=== PATIENT | male | born 1960 | race Caucasian/White ===

== ENCOUNTER 2016-04-05 10:50 | Outpatient (CLI) | payer MEDICAID | END 2016-04-05 10:51 | disposition home or self-care (01) | DX: S83.242A Other tear of medial meniscus, current injury, left knee, initial encounter (principal); M23.022 Cystic meniscus, posterior horn of medial meniscus, left knee; M17.12 Unilateral primary osteoarthritis, left knee ==

== ENCOUNTER 2016-05-02 17:17 | Outpatient (CLI) | payer MEDICAID | END 2016-05-02 17:18 | disposition critical access hospital (66) | DX: R00.2 Palpitations (principal) | CPT/HCPCS: A0425; A0429 ==

== ENCOUNTER 2016-05-02 17:31 | Emergency (ER) | payer MEDICAID | END 2016-05-02 19:58 | disposition home or self-care (01) | DX: R00.2 Palpitations (principal); F99 Mental disorder, not otherwise specified; F31.9 Bipolar disorder, unspecified; R03.0 Elevated blood-pressure reading, without diagnosis of hypertension ==

== ENCOUNTER 2019-06-29 08:00 | Outpatient (CLI) | payer MEDICAID, MEDICARE ==
[2019-06-29 18:51] LABS: BILIRUBIN,URINE NEGATIVE (NEGATIVE); GLUCOSE, URINE (UA) NEGATIVE (NEGATIVE); KETONES,URINE (UA) NEGATIVE (NEGATIVE); LEUKOCYTE ESTERASE, URINE NEGATIVE (NEGATIVE); NITRITE,URINE NEGATIVE (NEGATIVE); OCCULT BLOOD,URINE NEGATIVE (NEGATIVE); PROTEIN,URINE NEGATIVE (NEGATIVE); UROBILINOGEN,URINE 0.2 (NORMAL) E.U./dL (NORMAL)
[2019-06-29 18:56] LABS: CLARITY,URINE CLEAR (CLEAR)
== END 2019-06-29 23:59 | disposition home or self-care (01) ==
LOC: LAB.R 08:00
PROVIDERS: ATTEND Physician Assistant Medical
DX: R35.0 Frequency of micturition (principal)
CPT/HCPCS: 81001; 81003; 87086

== ENCOUNTER 2020-03-24 08:00 | Outpatient (CLI) | payer MEDICARE ==
[2020-03-24 17:56] LABS: BILIRUBIN,URINE NEGATIVE (NEGATIVE); GLUCOSE, URINE (UA) NEGATIVE (NEGATIVE); KETONES,URINE (UA) NEGATIVE (NEGATIVE); LEUKOCYTE ESTERASE, URINE NEGATIVE (NEGATIVE); NITRITE,URINE NEGATIVE (NEGATIVE); OCCULT BLOOD,URINE NEGATIVE (NEGATIVE); PROTEIN,URINE NEGATIVE (NEGATIVE); UROBILINOGEN,URINE 0.2 (NORMAL) E.U./dL (NORMAL)
[2020-03-24 17:58] LABS: CLARITY,URINE CLOUDY (CLEAR)
[2020-03-24 19:14] LABS: BACTERIA,URINE None Seen /HPF (None Seen); SQUAMOUS EPITHELIAL CELL,UR NONE SEEN (<= Few)
[2020-03-24 19:17] LABS: RBC,URINE TNTC /HPF (0-5)
== END 2020-03-24 23:59 | disposition home or self-care (01) ==
LOC: LAB.WCP 08:00
DX: C61 Malignant neoplasm of prostate (principal)
CPT/HCPCS: 81001; 87086

== ENCOUNTER 2020-08-23 19:52 | Outpatient (CLI) | payer MEDICARE | END 2020-08-23 19:53 | disposition EMS.NT | LOC: EMS 19:52 | DX: Z03.89 Encounter for observation for other suspected diseases and conditions ruled out (principal) ==

== ENCOUNTER 2020-08-26 17:14 | Emergency (ER) | payer MEDICARE ==
--- NOTE | 2020-08-26 17:28 | ED Physician Documentation ---
History of Present Illness - Stated complaint Stated Complaint: FIT - Chief complaint Chief Complaint: General - History obtained from History obtained from: Patient, Police - Additonal information Additional information: 60-year-old gentleman with bipolar disorder, also prostate cancer and potentially leukemia, sounds like he is in remission on hormonal therapy. Gets treatment at the [facility]. Brought in by police for mental health evaluation versus fit for confinement. He is clearly manic but says that he is not bipolar. Does admit that he is not on any of his bipolar meds which she was on in the past. No SI or HI. Review of Systems Ten Systems: 10 systems reviewed and negative Constitutional: reports: Reviewed and negative Eyes: reports: Reviewed and negative Ears: reports: Reviewed and negative PD PAST MEDICAL HISTORY - Past Medical History Cardiovascular: Hypertension, Arrhythmia GI: GERD Psych: Bipolar disorder, Post traumatic stress disorder - Past Surgical History Past Surgical History: No - Present Medications Home Medications: Ambulatory Orders Medication Instructions Recorded Confirmed Amlodipine Besylate [Norvasc] 1 tab PO DAILY 08/26/20 08/26/20 Losartan Potassium [Cozaar] 1 tab PO DAILY 08/26/20 08/26/20 Prednisone [Judith] 1 tab PO BID 08/26/20 08/26/20 Venlafaxine [Effexor] 1 tab PO DAILY 08/26/20 08/26/20 hydroCHLOROthiazide [Hydrodiuril] 1 tab PO DAILY 08/26/20 08/26/20 - Allergies Allergies/Adverse Reactions: Allergies Allergy/AdvReac Type Severity Reaction Status Date / Time atenolol [From Tenormin] AdvReac Unknown Hallucinati Verified 08/26/20 17:24 ons digoxin AdvReac Unknown Unknown Verified 08/26/20 17:24 - Social History Does the pt smoke?: No Smoking Status: Never smoker Does the pt drink ETOH?: No Does the pt have substance abuse?: Yes - Immunizations Immunizations are current?: Yes - POLST Patient has POLST: No PD ED PE NORMAL - Vitals Vital signs reviewed: Yes - General General: Other (Pressured speech with tangential thought processes) - HEENT HEENT: PERRL, EOMI - Neck Neck: Supple, no meningeal sign, No bony TTP - Cardiac Cardiac: RRR, No murmur - Respiratory Respiratory: No respiratory distress, Clear bilaterally - Abdomen Abdomen: Normal bowel sounds, Soft, Non tender - Back Back: No CVA TTP, No spinal TTP - Derm Derm: Normal color, Warm and dry - Extremities Extremities: No edema, No calf tenderness / cord - Neuro Neuro: Alert and oriented X 3, Normal speech - Psych Psych: Other (Pressured and manic) Results - Vitals Vitals: Vital Signs - 24 hr 08/26/20 08/26/20 17:16 23:00 Temperature 36.6 C 36.5 C Heart Rate 111 H 90 Respiratory 16 16 Rate Blood Pressure 190/82 H 140/80 H O2 Saturation 98 100 Oxygen O2 Source Room air - EKG (time done) 1918 Rate: Rate (enter#) (79) Rhythm: NSR Gulliver: Normal Intervals: Normal ID QRS: Normal Ischemia: Normal ST segments - Labs Labs: Laboratory Tests 08/26/20 08/26/20 08/26/20 17:30 17:30 17:30 WBC 7.9 RBC 4.31 L Hgb 13.4 L Hct 40.0 L MCV 92.8 MCH 31.1 H MCHC 33.5 RDW 12.5 Plt Count 258 MPV 8.7 Neut # (Auto) 4.2 Lymph # (Auto) 2.9 Bradley # (Auto) 0.6 Eos # (Auto) 0.3 Baso # (Auto) 0.0 Absolute Nucleated RBC 0.00 Nucleated RBC % 0.0 Sodium 138 Potassium 3.6 Chloride 102 Carbon Dioxide 24 Anion Gap 12.0 BUN 15 Creatinine 0.8 Estimated GFR (MDRD) 98 Glucose 181 H Calcium 9.7 Total Bilirubin 0.5 AST 30 ALT 27 Alkaline Phosphatase 95 Total Protein 7.5 Albumin 4.1 Globulin 3.4 Albumin/Globulin Ratio 1.2 Lipase 39 TSH 1.02 Urine Color Urine Clarity Urine pH Ur Specific [place] Urine Protein Urine Glucose (UA) Urine Ketones Urine Occult Blood Urine Nitrite Urine Bilirubin Urine Urobilinogen Ur Leukocyte Esterase Ur Microscopic Review Urine Culture Comments Nasal Adenovirus (PCR) Nasal B. parapertussis DNA (PCR) Nasal Coronavir 229E PCR Nasal Coronavir HKU1 PCR Nasal Coronavir NL63 PCR Nasal Coronavir OC43 PCR Nasal Enterovir/Rhinovir PCR Nasal Influenza B PCR Nasal Influenza A PCR Nasal Parainfluen 1 PCR Nasal Parainfluen 2 PCR Nasal Parainfluen 3 PCR Nasal Parainfluen 4 PCR Nasal RSV (PCR) Nasal B.pertussis DNA PCR Nasal C.pneumoniae (PCR) Yvon Human Metapneumo PCR Nasal M.pneumoniae (PCR) Nasal SARS-CoV-2 (PCR) Salicylates < 6.0 Urine Opiates Screen Ur Oxycodone Screen Urine Methadone Screen Ur Propoxyphene Screen Acetaminophen < 10 L Ur Barbiturates Screen Ur Tricyclics Screen Ur Phencyclidine Scrn Ur Amphetamine Screen U Methamphetamines Scrn U Benzodiazepines Scrn Urine Cocaine Screen U Cannabinoids Screen Ethyl Alcohol < 5.0 08/26/20 08/26/20 17:37 18:05 WBC RBC Hgb Hct MCV MCH MCHC RDW Plt Count MPV Neut # (Auto) Lymph # (Auto) Bradley # (Auto) Eos # (Auto) Baso # (Auto) Absolute Nucleated RBC Nucleated RBC % Sodium Potassium Chloride Carbon Dioxide Anion Gap BUN Creatinine Estimated GFR (MDRD) Glucose Calcium Total Bilirubin AST ALT Alkaline Phosphatase Total Protein Albumin Globulin Albumin/Globulin Ratio Lipase TSH Urine Color YELLOW Urine Clarity CLEAR Urine pH 5.5 Ur Specific [place] 1.015 Urine Protein NEGATIVE Urine Glucose (UA) NEGATIVE Urine Ketones NEGATIVE Urine Occult Blood NEGATIVE Urine Nitrite NEGATIVE Urine Bilirubin NEGATIVE Urine Urobilinogen 0.2 (NORMAL) Ur Leukocyte Esterase NEGATIVE Ur Microscopic Review NOT INDICATED Urine Culture Comments NOT INDICATED Nasal Adenovirus (PCR) NOT DETECTED Nasal B. parapertussis DNA (PCR) NOT DETECTED Nasal Coronavir 229E PCR NOT DETECTED Nasal Coronavir HKU1 PCR NOT DETECTED Nasal Coronavir NL63 PCR NOT DETECTED Nasal Coronavir OC43 PCR NOT DETECTED Nasal Enterovir/Rhinovir PCR NOT DETECTED Nasal Influenza B PCR NOT DETECTED Nasal Influenza A PCR NOT DETECTED Nasal Parainfluen 1 PCR NOT DETECTED Nasal Parainfluen 2 PCR NOT DETECTED Nasal Parainfluen 3 PCR NOT DETECTED Nasal Parainfluen 4 PCR NOT DETECTED Nasal RSV (PCR) NOT DETECTED Nasal B.pertussis DNA PCR NOT DETECTED Nasal C.pneumoniae (PCR) NOT DETECTED Yvon Human Metapneumo PCR NOT DETECTED Nasal M.pneumoniae (PCR) NOT DETECTED Nasal SARS-CoV-2 (PCR) NOT DETECTED Salicylates Urine Opiates Screen NEGATIVE Ur Oxycodone Screen NEGATIVE Urine Methadone Screen NEGATIVE Ur Propoxyphene Screen NEGATIVE Acetaminophen Ur Barbiturates Screen NEGATIVE Ur Tricyclics Screen NEGATIVE Ur Phencyclidine Scrn NEGATIVE Ur Amphetamine Screen NEGATIVE U Methamphetamines Scrn NEGATIVE U Benzodiazepines Scrn NEGATIVE Urine Cocaine Screen NEGATIVE U Cannabinoids Screen POSITIVE H Ethyl Alcohol PD MEDICAL DECISION MAKING - ED course ED course: His description of his current cancer treatment is suppressive and therefore could be delayed, again based on his description, pending more urgent psychiatric treatment. Seen by the DCR who is forced to "walk away" due to lack of beds. At shift change s/o to Dr Camacho in the hopes that we can look for beds again in the AM. Departure - Departure Disposition: 01 Home, Self Care Clinical Impression: Bipolar disorder with severe rylee Condition: Stable Instructions: ED Manic Depression Follow-Up: [facility] [Provider Group] Comments: Tonight it is apparent your having an issue with rylee. This occurs when there is an imbalance in your brain chemistry resulting in rapid thought that is not always organized. You would benefit from sleep and you have refused help in the form of medication for sleep.Recommendation is to follow-up with your primary care doctor for medication for sleep and to treat rylee. Discharge Date/Time: 08/26/20 23:50
[2020-08-26 17:43] LABS: BASOPHILS % (AUTO) 0.4 %; EOSINOPHILS # (AUTO) 0.3 10^3/uL (0.0-0.7); EOSINOPHILS % (AUTO) 3.2 %; HGB - HEMOGLOBIN 13.4 g/dL (14.0-18.0); LYMPHOCYTES # (AUTO) 2.9 10^3/uL (1.5-3.5); LYMPHOCYTES % (AUTO) 36.2 %; MEAN CORPUSCULAR HEMOGLOBIN 31.1 pg (27.0-31.0); MEAN CORPUSCULAR HGB CONC 33.5 g/dL (32.0-36.0); MEAN CORPUSCULAR VOLUME 92.8 fL (80.0-94.0); MEAN PLATELET VOLUME 8.7 fL (7.4-11.4); MONOCYTES # (AUTO) 0.6 10^3/uL (0.0-1.0); MONOCYTES % (AUTO) 7.1 %; NEUTROPHILS # (AUTO) 4.2 10^3/uL (1.5-6.6); NEUTROPHILS % (AUTO) 52.6 %; PLT - PLATELET COUNT 258 10^3/uL (130-450); RED BLOOD COUNT 4.31 10^6/uL (4.70-6.10); RED CELL DISTRIBUTION WIDTH 12.5 % (12.0-15.0); WHITE BLOOD COUNT 7.9 x10^3/uL (4.8-10.8)
[2020-08-26 18:00] LABS: ACETAMINOPHEN < 10 ug/mL (10-30); ALBUMIN 4.1 g/dL (3.2-5.5); ALBUMIN/GLOBULIN RATIO 1.2 (1.0-2.2); ALKALINE PHOSPHATASE 95 IU/L (42-121); ALT ALANINE AMINOTRANSFERASE 27 IU/L (10-60); AST ASPARTATE AMINOTRANSFERASE 30 IU/L (10-42); BILIRUBIN,TOTAL 0.5 mg/dL (0.2-1.0); BUN - BLOOD UREA NITROGEN 15 mg/dL (6-20); CALCIUM 9.7 mg/dL (8.5-10.3); CARBON DIOXIDE - CO2 24 mmol/L (21-32); CHLORIDE 102 mmol/L (101-111); CREATININE 0.8 mg/dL (0.6-1.2); ETOH - ETHANOL < 5.0 mg/dL; GFR - MDRD 98 (>89); GLUCOSE 181 mg/dL (70-100); LIPASE 39 U/L (22-51); POTASSIUM 3.6 mmol/L (3.5-5.0); SALICYLATE < 6.0 mg/dL; SODIUM 138 mmol/L (135-145); TOTAL PROTEIN 7.5 g/dL (6.7-8.2)
[2020-08-26 18:14] LABS: MUDS CUTOFF CONCENTRATIONS CUTOFF CONC BELOW:
[2020-08-26 18:17] LABS: BILIRUBIN,URINE NEGATIVE (NEGATIVE); GLUCOSE, URINE (UA) NEGATIVE (NEGATIVE); KETONES,URINE (UA) NEGATIVE (NEGATIVE); LEUKOCYTE ESTERASE, URINE NEGATIVE (NEGATIVE); NITRITE,URINE NEGATIVE (NEGATIVE); OCCULT BLOOD,URINE NEGATIVE (NEGATIVE); PH,URINE 5.5 PH (5.0-7.5); PROTEIN,URINE NEGATIVE (NEGATIVE); UROBILINOGEN,URINE 0.2 (NORMAL) E.U./dL (NORMAL)
[2020-08-26 18:19] LABS: CLARITY,URINE CLEAR (CLEAR)
[2020-08-26 18:29] LABS: AMPHETAMINE SCREEN,URINE NEGATIVE (NEGATIVE); BARBITURATE SCREEN,UR NEGATIVE (NEGATIVE); BENZODIAZEPINES SCREEN, URINE NEGATIVE (NEGATIVE); COCAINE SCREEN URINE NEGATIVE (NEGATIVE); METHADONE SCREEN, URINE NEGATIVE (NEGATIVE); METHAMPHETAMINES SCREEN, URINE NEGATIVE (NEGATIVE); OPIATE SCREEN, URINE NEGATIVE (NEGATIVE); OXYCODONE SCREEN, URINE NEGATIVE (NEGATIVE); PROPOXYPHENE SCREEN, URINE NEGATIVE (NEGATIVE); THC CANNABINOID SCREEN, URINE POSITIVE (NEGATIVE); TRICYCLIC ANTIDEPRESSANT,URINE NEGATIVE (NEGATIVE)
[2020-08-26 18:44] LABS: B. PARAPERTUSSIS- RESP PCR PAN NOT DETECTED; B. PERTUSSIS- RESP PCR PANEL NOT DETECTED; C. PNEUMONIAE- RESP PCR PANEL NOT DETECTED; CORONAVIRUS 229E-RESP PCR NOT DETECTED; CORONAVIRUS HKU1-RESP PCR NOT DETECTED; CORONAVIRUS NL63-RESP PCR NOT DETECTED; CORONAVIRUS OC43-RESP PCR NOT DETECTED; HUMAN METAPNEUMOVIRUS NOT DETECTED; INFLUENZA A- RESP PCR PANEL NOT DETECTED; INFLUENZA B - RESP PCR PANEL NOT DETECTED; M. PNEUMONIAE- RESP PCR PANEL NOT DETECTED; PARAINFLUENZA VIRUS 1 NOT DETECTED; PARAINFLUENZA VIRUS 2 NOT DETECTED; PARAINFLUENZA VIRUS 3 NOT DETECTED; PARAINFLUENZA VIRUS 4 NOT DETECTED; RHINOVIRUS/ENTEROVIRUS NOT DETECTED; RSV- RESP PCR PANEL NOT DETECTED; SARS-CoV-2 -RESP PCR PANEL NOT DETECTED
[2020-08-26] MEDS ORDERED: OLANZapine ODT 5 MG TABLET TL STA (19:03)
[2020-08-26] MEDS ORDERED: OLANZapine ODT 5 MG TABLET TL ONE (22:04)
--- NOTE | 2020-08-26 23:41 | ED Physician Documentation ---
ED Addendum - Addendum Addendum: 08/26/20 23:36 60-year-old male with 4 days of acute rylee has been brought to the hospital and evaluated by the DCR and no beds are available and they have done a walk away. The patient is obviously manic and refusing medication. He is disruptive to the entire department not allowing other patients to come back to the department who were waiting in the waiting room. 4 police officers are summoned to the hospital and the patient asks to be arrested. They do not have something to arrest the patient for.I have gone into the patient's room spoken with him multiple times encouraged him to take medication for sleep and he has adamantly refused. He does have delusions of grandeur pressured speech flight of ideas and a disorganized thought process.The police officers are informed that the patient will be discharged from the emergency department. I am relatively certain that the patient will be a menace to someone else this evening and may require intervention of police. They are aware that this will likely happen. We are pressured here this evening to release the patient as we have no place specific to treat him. He is not suicidal or homicidal. He is manic. Treatment is not available in the form of inpatient psych. The patient has refused all form of medication or treatment here in the emergency department. 08/27/20 05:29
[2020-08-26 23:50] VITALS: BP 140/80
== END 2020-08-26 23:50 | disposition home or self-care (01) ==
LOC: ED 17:14
DX: F31.13 Bipolar disorder, current episode manic without psychotic features, severe (principal); F22 Delusional disorders; Z53.29 Procedure and treatment not carried out because of patient's decision for other reasons; C61 Malignant neoplasm of prostate; I10 Essential (primary) hypertension; Z20.822 Contact with and (suspected) exposure to COVID-19
CPT/HCPCS: 36415; 80053; 80306; 80307; 81003; 83690; 84443; 85025; 87631; 93005; 99283; G0480; 0202U; 80320; 80329; 81001; 87086

== ENCOUNTER 2020-08-29 13:13 | Emergency (ER) | payer MEDICARE | END 2020-08-29 13:18 | disposition left against medical advice (07) | LOC: ED 13:13 | DX: Z53.21 Procedure and treatment not carried out due to patient leaving prior to being seen by health care provider (principal) ==

== ENCOUNTER 2020-09-17 08:51 | Outpatient (CLI) | payer MEDICARE | END 2020-09-17 08:52 | disposition short-term general hospital (02) | LOC: EMS 08:51 | DX: R53.83 Other fatigue (principal); Z59.0 Homelessness | CPT/HCPCS: A0425; A0429 ==